=== PATIENT | female | born 1970 | race American Indian/Alaskan Native ===

== ENCOUNTER 2018-07-31 06:12 | Inpatient (IN) | payer OTHER ==
[2018-07-25 16:52] VITALS: BMI 39.4
[2018-07-31] MEDS ORDERED: Bupivacaine HCl 0.5% PF (30 ml) Inj ONE (07:14)
[2018-07-31] MEDS ORDERED: Propofol 10 mg/ml Inj (20 ML) ONE (07:44)
[2018-07-31] MEDS ORDERED: Rocuronium 10 mg/ml (5 ml) ONE ×3 (07:44→10:45)
[2018-07-31] MEDS ORDERED: Succinylcholine Chloride 20 mg/ml Syr (5 ml) IV ONE (07:45)
[2018-07-31] MEDS ORDERED: Lidocaine 4% (Laryng-O-Jet) Kit MM ONE (07:45)
[2018-07-31 08:05] LABS: BASO # 0.2 K/uL (0.0-0.2); BASO % 4.2 % (0.0-2.0); EOS # 0.2 K/uL (0.0-0.7); EOS % 4.1 % (0.0-4.0); HEMOGLOBIN 11.9 g/dL (12.0-16.0); LYMPH # 1.5 K/uL (1.0-4.3); LYMPH % 36.5 % (20.0-40.0); MEAN CORPUSCULAR HEMOGLOBIN 24.9 pg (27.0-31.0); MEAN CORPUSCULAR HGB CONC 32.3 g/dL (33.0-37.0); MEAN PLATELET VOLUME 9.1 fl (7.2-11.7); MONO # 0.4 K/uL (0.0-0.8); MONO % 10.6 % (0.0-10.0); NEUT # 1.8 K/uL (1.8-7.0); NEUT % 44.6 % (50.0-75.0); NRBC % 0.1 % (0.0-0.0); PLATELET COUNT 252 K/uL (130-400); RBC 4.79 Mil/uL (3.80-5.20); RED CELL DISTRIBUTION WIDTH 16.7 % (11.5-14.5)
[2018-07-31] MEDS ORDERED: Lactated Ringer's 1,000 ML IV ONE ×3 (08:20→09:40)
--- NOTE | 2018-07-31 08:21 | CP.PCM.HP ---
History of Present Illness - History of Present Illness History of Present Illness: 48yo female with long h/o symptomatic fibroid uterus. Discussed R/B/A of treatment and patient opting for definitive treatment with hysterectomy. Discussed the R/B/A of procedure and all patient questions answered. Present on Admission - Present on Admission Any Indicators Present on Admission: No History of DVT/PE: No History of Uncontrolled Diabetes: No Urinary Catheter: No Decubitus Ulcer Present: No Past Patient History - Past Medical History & Family History Past Medical History?: Yes - Past Social History Smoking Status: Former Smoker - CARDIAC Hx Cardiac Disorders: No - PULMONARY Hx Respiratory Disorders: No - NEUROLOGICAL Hx Neurological Disorder: No - HEENT Hx HEENT Problems: No - RENAL Hx Chronic Kidney Disease: No - ENDOCRINE/METABOLIC Hx Endocrine Disorders: Yes Hx Hypothyroidism: Yes - HEMATOLOGICAL/ONCOLOGICAL Hx Blood Disorders: Yes Hx Anemia: Yes Hx Blood Transfusions: No - INTEGUMENTARY Hx Dermatological Problems: No - MUSCULOSKELETAL/RHEUMATOLOGICAL Hx Musculoskeletal Disorders: Yes Hx Back Pain: Yes Other/Comment: SCIATICA - GASTROINTESTINAL Hx Gastrointestinal Disorders: No - GENITOURINARY/GYNECOLOGICAL Hx Genitourinary Disorders: No - PSYCHIATRIC Hx Psychophysiologic Disorder: No Hx Substance Use: No - SURGICAL HISTORY Hx Surgeries: Yes Hx Appendectomy: Yes Hx Section: Yes (x2) Hx Eye Surgery: Yes (right eye orbital floor fx) Hx Herniorrhaphy: Yes (umbilical) Hx Tubal Ligation: Yes - ANESTHESIA Hx Anesthesia: Yes Hx Anesthesia Reactions: No Hx Malignant Hyperthermia: No Has any member of the family had a problem w/ anesthesia?: No Meds Allergies/Adverse Reactions: Allergies Allergy/AdvReac Type Severity Reaction Status Date / Time orange juice Allergy GI Verified 07/25/18 16:55 DISCOMFORT pepper (genus Capsicum) Allergy RASH Verified 07/25/18 16:53 [pepper] shellfish derived Allergy RASH Verified 07/25/18 16:55 tomato Allergy RASH Verified 07/25/18 16:55 Physical Exam - Constitutional Appears: Well, No Acute Distress - Head Exam Head Exam: ATRAUMATIC - Eye Exam Eye Exam: EOMI, Normal appearance - ENT Exam ENT Exam: Mucous Membranes Moist, Normal Exam - Respiratory Exam Respiratory Exam: Clear to Auscultation Bilateral, NORMAL BREATHING PATTERN - Cardiovascular Exam Cardiovascular Exam: REGULAR RHYTHM - GI/Abdominal Exam GI & Abdominal Exam: Normal Bowel Sounds, Soft. absent: Distended, Tenderness - Extremities Exam Extremities exam: Positive for: normal inspection. Negative for: calf tenderness Results - Vital Signs Recent Vital Signs: Last Vital Signs Temp 98.1 F 07/31/18 07:08 Pulse 71 07/31/18 07:08 Resp 18 07/31/18 07:08 BP 122/93 H 07/31/18 07:08 Pulse Ox 100 07/31/18 07:08 - Labs Result Diagrams: 07/31/18 07:52 Labs: Laboratory Results - last 24 hr 07/31/18 07/31/18 07:52 07:52 WBC 4.0 L RBC 4.79 Hgb 11.9 L Hct 36.9 MCV 77.0 L MCH 24.9 L MCHC 32.3 L RDW 16.7 H Plt Count 252 MPV 9.1 Neut % (Auto) 44.6 L Lymph % (Auto) 36.5 [place] % (Auto) 10.6 H Eos % (Auto) 4.1 H Baso % (Auto) 4.2 H Neut # (Auto) 1.8 Lymph # (Auto) 1.5 [place] # (Auto) 0.4 Eos # (Auto) 0.2 Baso # (Auto) 0.2 BBK History Checked No verified bt - Imaging and Cardiology US - abdomen Status: Report reviewed by me Assessment & Plan - Assessment and Plan (Free Text) Assessment: Symptomatic fibroid uterus Plan: Robot asst laparoscopic hysterectomy and bilateral salpingectomy, cystoscopy with temp stent placement. - Date & Time Date: 07/31/18 Time: 08:22
[2018-07-31] MEDS ORDERED: Midazolam 2 MG/2 ML VIAL ONE (08:22)
[2018-07-31 09:05] LABS: BASOPHIL 1 % (0-2); EOSINOPHIL 3 % (0-7); LYMPHOCYTE 22 % (20-50); MONOCYTE 4 % (0-10); NEUTROPHIL 70 % (42-75); PLATELET ESTIMATE NORMAL (NORMAL); TOTAL CELLS COUNTED 100
[2018-07-31 09:06] LABS: ANISOCYTOSIS SLIGHT; LARGE PLATELETS PRESENT; OVALOCYTES MODERATE
[2018-07-31] MEDS ORDERED: Neostigmine 1:1000 (1 mg/ml) Inj ONE (11:20)
[2018-07-31] MEDS ORDERED: Lactated Ringer's 500 ML IV ONE (11:40)
[2018-07-31] MEDS ORDERED: Lactated Ringer's 1,000 ML IV SCH (11:45)
[2018-07-31] MEDS: HYDROmorphone 0.5 mg/0.5 ml ISec IVP PRN ×2 (12:10→13:40)
[2018-07-31] MEDS ORDERED: Oxycodone/Acetaminophen 5/325 mg Tab PO PRN (14:08)
[2018-07-31] MEDS: Lactated Ringer's 1,000 ML IV SCH ×2 (15:26→21:47)
[2018-07-31 22:43] VITALS: RESP 20
[2018-08-01] MEDS: Lactated Ringer's 1,000 ML IV SCH (05:58)
[2018-08-01 06:54] LABS: HEMOGLOBIN 10.6 g/dL (12.0-16.0); MEAN CELL VOLUME 77.1 fl (81.0-99.0); MEAN CORPUSCULAR HEMOGLOBIN 24.7 pg (27.0-31.0); MEAN CORPUSCULAR HGB CONC 32.1 g/dL (33.0-37.0); RBC 4.28 Mil/uL (3.80-5.20); RED CELL DISTRIBUTION WIDTH 16.6 % (11.5-14.5); WHITE BLOOD COUNT 7.9 K/uL (4.8-10.8)
--- NOTE | 2018-08-01 12:08 | PCM.SURG1 ---
Surgeon's Initial Post Op Note - Surgeon's Notes Surgeon: Juve Squad Boss: Horace Type of Anesthesia: General Endo Anesthesia Administered By: Kim Pre-Operative Diagnosis: Symptomatic fibroid uterus Operative Findings: Fibroid uterus ~10-12wk size, normal ovaries bilaterally, tubal remnants bilaterally, severe pelvic adhesions Post-Operative Diagnosis: Same Operation Performed: Robotic asst total hysterectomy, cystoscopy with temp stent placement, LATISHA Specimen/Specimens Removed: Uterus with cervix Estimated Blood Loss: EBL {In ML}: 300 Blood Products Given: N/A Drains Used: No Drains Post-Op Condition: Good Date of Surgery/Procedure: 07/31/18 Time of Surgery/Procedure: 10:00
--- NOTE | 2018-08-01 12:12 | CP.PCM.PN ---
Subjective - Date & Time of Evaluation Date of Evaluation: 08/01/18 Time of Evaluation: 12:12 - Subjective Subjective: Patient comfortable without complaints. Ambulating well. Dahl out, patient reports voiding without complication. Patient tolerating regular diet. Patient denies any nausea or vomiting, chest pain or shortness of breath. Patient re ports pain well controlled. Objective - Vital Signs/Intake and Output Vital Signs (last 24 hours): Temp Pulse Resp BP Pulse Ox 100.1 F H 82 20 111/72 99 08/01/18 05:00 08/01/18 05:00 08/01/18 05:00 08/01/18 05:00 08/01/18 05:00 Intake and Output: 08/01/18 08/01/18 06:59 18:59 Intake Total 2800 200 Output Total 2700 300 Balance 100 -100 - Medications Medications: Current Medications Lactated Ringer's (Lactated Ringer's) 1,000 mls @ 125 mls/hr IV .Q8H [facility] Last Admin: 08/01/18 05:58 Dose: 125 mls/hr Ibuprofen (Motrin Tab) 600 mg PO Q8 PRN PRN Reason: Pain, moderate (4-7) Last Admin: 08/01/18 10:59 Dose: 600 mg Levothyroxine Sodium (Levothroid) 137 mcg PO DAILY@0630 [facility] Last Admin: 08/01/18 06:54 Dose: 137 mcg Ondansetron HCl (Zofran Inj) 4 mg IVP ONCE PRN PRN Reason: Nausea/Vomiting Oxycodone/Acetaminophen (Percocet 5/325 Mg Tab) 1 tab PO Q4 PRN PRN Reason: Pain, severe (8-10) Stop: 08/03/18 14:09 - Labs Labs: 08/01/18 06:40 - Constitutional Appears: Well, No Acute Distress - Head Exam Head Exam: ATRAUMATIC - ENT Exam ENT Exam: Mucous Membranes Moist, Normal Exam - Neck Exam Neck Exam: Normal Inspection - Respiratory Exam Respiratory Exam: Clear to Ausculation Bilateral, NORMAL BREATHING PATTERN - Cardiovascular Exam Cardiovascular Exam: REGULAR RHYTHM - GI/Abdominal Exam GI & Abdominal Exam: Soft, Normal Bowel Sounds. absent: Distended, Guarding, Tenderness, Rebound Additional comments: All port sites clean dry and intact - Extremities Exam Extremities Exam: Full ROM, Normal Inspection. absent: Calf Tenderness, Pedal Edema Assessment and Plan - Assessment and Plan (Free Text) Assessment: Postop day #1 status post robotic assisted total laparoscopic hysterectomy. Patient recovering well. Plan: Patient discharged home today with postoperative instructions Patient will return to office in 1 week for incision check Discussed plan with patient all patient questions answered.
--- NOTE | 2018-08-01 12:22 | CP.PCM.DIS ---
Provider - Provider Date of Admission: 07/31/18 14:08 Attending physician: Holger An MD Time Spent in preparation of Discharge (in minutes): 15 Diagnosis - Discharge Diagnosis (1) Fibroid uterus Status: Acute Hospital Course - Lab Results Lab Results: Most Recent Lab Values WBC 7.9 K/uL (4.8-10.8) D 08/01/18 06:40 RBC 4.28 Mil/uL (3.80-5.20) 08/01/18 06:40 Hgb 10.6 g/dL (12.0-16.0) L 08/01/18 06:40 Hct 33.0 % (34.0-47.0) L 08/01/18 06:40 MCV 77.1 fl (81.0-99.0) L 08/01/18 06:40 MCH 24.7 pg (27.0-31.0) L 08/01/18 06:40 MCHC 32.1 g/dL (33.0-37.0) L 08/01/18 06:40 RDW 16.6 % (11.5-14.5) H 08/01/18 06:40 Plt Count 235 K/uL (130-400) 08/01/18 06:40 MPV 9.1 fl (7.2-11.7) 07/31/18 07:52 Neut % (Auto) 44.6 % (50.0-75.0) L 07/31/18 07:52 Lymph % (Auto) 36.5 % (20.0-40.0) 07/31/18 07:52 [place] % (Auto) 10.6 % (0.0-10.0) H 07/31/18 07:52 Eos % (Auto) 4.1 % (0.0-4.0) H 07/31/18 07:52 Baso % (Auto) 4.2 % (0.0-2.0) H 07/31/18 07:52 Neut # (Auto) 1.8 K/uL (1.8-7.0) 07/31/18 07:52 Lymph # (Auto) 1.5 K/uL (1.0-4.3) 07/31/18 07:52 [place] # (Auto) 0.4 K/uL (0.0-0.8) 07/31/18 07:52 Eos # (Auto) 0.2 K/uL (0.0-0.7) 07/31/18 07:52 Baso # (Auto) 0.2 K/uL (0.0-0.2) 07/31/18 07:52 Neutrophils % (Manual) 70 % (42-75) 07/31/18 07:52 Lymphocytes % (Manual) 22 % (20-50) 07/31/18 07:52 Monocytes % (Manual) 4 % (0-10) 07/31/18 07:52 Eosinophils % (Manual) 3 % (0-7) 07/31/18 07:52 Basophils % (Manual) 1 % (0-2) 07/31/18 07:52 Platelet Estimate Normal (NORMAL) 07/31/18 07:52 Large Platelets Present 07/31/18 07:52 Anisocytosis (manual) Slight 07/31/18 07:52 Ovalocytes Moderate 07/31/18 07:52 Blood Type O POSITIVE 07/31/18 07:52 Blood Type Confirm O POSITIVE 07/31/18 08:30 Antibody Screen Negative 07/31/18 07:52 Crossmatch See Detail 07/31/18 07:52 BBK History Checked No verified bt 07/31/18 07:52 Discharge Exam - Head Exam Head Exam: ATRAUMATIC Discharge Plan - Follow Up Plan Condition: GOOD Disposition: HOME/ ROUTINE Instructions: Robot-Assisted Surgery, How to Wash Your Hands Properly, Hysterectomy, Abdominal or Laparoscopic Surgery
[2018-08-01 13:27] VITALS: BP 123/71; PULSE 99; TEMP 98.5; O2SAT 100
--- NOTE | 2018-08-02 00:18 | OP ---
PROCEDURE DATE: 07/31/2018 PREOPERATIVE DIAGNOSIS: Symptomatic fibroid uterus. POSTOPERATIVE DIAGNOSES: Symptomatic fibroid uterus plus severe pelvic adhesions. OPERATION PERFORMED: Robotic assisted total hysterectomy, lysis of adhesions, cystoscopy with temporary stent placement. SURGEON: Holger An MD PURCHASING AND FISCAL CLERK: Dr. Jolene Vu. Dr. Vu was present from the beginning of procedure to the end of procedure. Dr. Vu was integral in exposing the surgical field, controlling of intraoperative bleeding, surgical removal of the uterus. Dr. Vu completed the cystoscopy and stent temporary placement. Dr. Vu will dictate that portion of procedure. ANESTHESIOLOGIST: Flo Alvarez MD ANESTHESIA: General. ESTIMATED BLOOD LOSS: 300 mL. FLUIDS: 3000 mL Lactated Ringer's. URINE OUTPUT: 300 mL of clear urine at the end of procedure. DESCRIPTION OF PROCEDURE: The patient was taken to the operating room, where general anesthesia was found to be adequate. The patient was prepped and draped in normal sterile fashion in dorsal lithotomy position. Cystoscopy and temporary stent placement was performed by Dr. Vu. Please refer to his dictation for this portion of the procedure. The cervix was dilated with Faulkner dilators to a size of 20-[place]. The uterine manipulator with a cup was placed over the cervix and secured. Attention was then turned to the abdomen. An approximately 5 mm incision was placed at the umbilicus. The Veress needle was placed through this incision into the abdominal cavity. After proper location ensured, the abdomen was insufflated with CO2 gas to a pressure of 15 mmHg. The Veress needle was removed from the abdomen. A sharp 5 mm trocar was placed through the umbilical incision into the abdominal cavity. A laparoscope was placed through the umbilical port site. The abdomen and pelvis were explored and the above findings noted. Two accessory port sites were placed at the lateral aspects of the abdomen under direct visualization. Each of these port sites were approximately 5 mm in size. The 5 mm trocars were placed through each of these accessory port sites. The da Javed robotic device was placed over the patient. The laparoscope ports were docked to the da Ajved robot under direct visualization. After ensuring proper placement, instruments were placed through port sites under direct visualization. The round ligaments were identified bilaterally, transected bilaterally and electrocauterized bilaterally. The suspensory ligaments of the ovaries were identified bilaterally, electrocauterized and transected bilaterally. The uterine arteries were skeletonized and identified bilaterally, electrocauterized bilaterally and transected bilaterally. At this point in surgery, reinspection of all surgical pedicles proved hemostasis. There was a severe amount of pelvic adhesions between the uterus and anterior abdominal wall and posterior cul-de-sac. These adhesions were removed bluntly and sharply with electrocautery. During removal of all surgical pedicles as well as during lysis of adhesions, ureters were observed bilaterally to ensure proper placement. The cervical and vaginal cuff was identified. The cervix and uterus were removed from the posterior vagina with a circumferential incision along the cervical cuff. After removing uterus and cervix from vagina, the surgical specimen was removed from the abdomen through the vagina with gentle traction. The vaginal cuff was closed with delayed absorbable barbed suture under direct visualization. Reinspection of the vaginal cuff proved hemostasis. The abdomen and pelvis were irrigated with copious amounts of warm normal saline. All surgical pedicles were found to be hemostatic. After removal of the uterus, cystoscopy was performed again. Both ureteral ostia showed active urine jet formation. The entire urinary bladder was found to be intact. All instruments were removed from the patient. The da Javed robot was undocked from the patient and removed. All trocars were removed from the patient. Each umbilical port site was closed with a subcutaneous stitch of 3-0 plain. The skin was closed at each port site with Dermabond. The patient tolerated the procedure well. All sponge count, lap count, and needle counts were correct x2. The patient was given 2 g of Ancef just prior to the beginning of the procedure. There were no complications. The patient was taken to recovery room in awake and stable condition. Holger An MD
--- NOTE | 2018-08-02 06:54 | OP ---
PROCEDURE DATE: 07/31/2018 SURGEON: Dr. Jolene Vu. This is an addendum to operative report dictated by Dr. Tyler An. INDICATION: The patient was scheduled for robotic hysterotomy, cystoscopy secondary to previous surgery and extensive abdominal and pelvic adhesions. I was called in to do a cystoscopy with stents. PROCEDURE: Upon arrival, the patient was prepped and draped in a normal sterile fashion. Attention was then placed to the urethra, where the cystoscope was inserted in the bladder. The bladder was surveyed. No abnormal lesions or vasculature was identified. Both ureters were noted and there was clear efflux of urine. We then proceeded to the left ureter, it was identified. A 5-[place] catheter was then inserted into the ureter and 5 mL of ICG was injected. A similar procedure was performed on the right. Everything was removed from the bladder. The rest of the dictation will be dictated by Dr. An. I was also the assistant professor of chemistry in this surgery to help create exposure, also for obtaining hemostasis, suction, irrigation, extraction, and closure of this patient. The procedure would not have been possible without my assistance. This concludes my participation of Brina Ortiz's care. Jolene Vu MD
== END 2018-08-01 14:20 | disposition home or self-care (01) | DRG 743 ==
LOC: H.OPSURG 06:12 → H.PEDS 14:08 → H.OPSURG 16:09 → H.PEDS 08-01 05:30
PROVIDERS: ADMIT Obstetrics & Gynecology; ATTEND Obstetrics & Gynecology
PROC: 0T788DZ Dilation of Bilateral Ureters with Intraluminal Device, Via Natural or Artificial Opening Endoscopic (ICD-10-PCS; 2018-07-31)
PROC: 8E0W4CZ Robotic Assisted Procedure of Trunk Region, Percutaneous Endoscopic Approach (ICD-10-PCS; 2018-07-31)
PROC: 0UT94ZZ Resection of Uterus, Percutaneous Endoscopic Approach (ICD-10-PCS; principal; 2018-07-31 07:45)
PROC: 0DNW4ZZ Release Peritoneum, Percutaneous Endoscopic Approach (ICD-10-PCS; 2018-07-31 07:45)
DX: D25.1 Intramural leiomyoma of uterus (principal); D25.2 Subserosal leiomyoma of uterus; N73.6 Female pelvic peritoneal adhesions (postinfective); E03.9 Hypothyroidism, unspecified; Z98.891 History of uterine scar from previous surgery; Z98.51 Tubal ligation status; Z87.891 Personal history of nicotine dependence